=== PATIENT | female | born 1945 | race Caucasian/White ===

== ENCOUNTER → 2020-10-11 | Outpatient (CLI) | payer OTHER ==
[~2020-10-11] VITALS: Ht 162.6 cm; Wt 74.8 kg
[~2020-10-11] MED LIST: FISH OIL 1,0001 EAC9 PO; LEXAPRO20 MG PO; PROTONIX40 M2 PO; SIMVASTATIN40 MG PO; VESICARE10 M1 PO; VITAMIN D325 MC3 PO
--- NOTE | 2020-10-13 14:07 | PATH ---
[facility] [place] [address] [place] [address] PATHOLOGY RPT PROCEDURE Name: AMRITA ANDERSON Room #: REG [facility].#: [id number] Admission: 10/11/20 Date of : 47 Discharge: Report #: [id number] Path Case #: [id number] [facility] Accession Number: [id number] . 01 Material submitted: . PART A: colon - DESCENDING COLON POLYP. Modifiers: descending PART B: sigmoid colon - SIGMOID COLON POLYP X4. Modifiers: X4 PART C: rectum - RECTAL POLYP X2. Modifiers: X2 . 01 Clinical history: . HX OF POLYPS . . 02 Diagnosis: A. Polyp, descending colon polyp, endoscopic biopsy: - Tubular adenoma. - Negative for high grade dysplasia. . B. Polyp x4, sigmoid colon polyp, endoscopic biopsy: - Tubular adenoma identified in few fragments; negative for high grade dysplasia. - Few fragments showing hyperplastic polyp without any dysplasia. . C. Polyp x2, rectal polyp, endoscopic biopsy: - Hyperplastic polyp identified in all fragments. - Negative for dysplasia. . (IUV:mml; 10/13/2020) QLM 10/13/2020 1105 Local . 02 Electronically signed: . Alyssa Mcgowan MD, Pathologist NPI- [id number] . 01 Gross description: . A. The specimen is received in formalin, labeled "Amrita Anderson, descending colon polyp". Received are two segments of pale hernandez tissue measuring 0.3 cm each in maximum dimensions. The specimen is submitted entirely in cassette A1. . B. The specimen is received in formalin, labeled "Amrita Anderson, sigmoid colon polyp". Received are five segments of pale hernandez tissue ranging in size from 0.2-0.5 cm in maximum dimensions. The specimen is submitted entirely in cassette B1. . C. The specimen is received in formalin, labeled "Amrita Anderson, rectal polyp". Received are three segments of pale hernandez tissue ranging in size [address] [address] PATHOLOGY RPT PROCEDURE Name: AMRITA ANDERSON Room #: REG [facility]#: [id number] Admission: 10/11/20 Date of : 47 Discharge: Report #: [id number] Path Case #: [id number] from 0.2-0.3 cm in maximum dimensions. The specimen is submitted entirely in cassette C1. (CAA; 10/12/2020) QAC/QAC 10/12/2020 1225 [facility] . 02 Pathologist provided ICD-10: D12.4, D12.5, K62.1 . 02 CPT . 971086, 540794, 134410 Specimen Comment: A courtesy copy of this report has been sent to [phone] Specimen Comment: [id number] Specimen Comment: Report sent to / DR IFSHMAN Performed at: [address], [place] [id number] MD Denzel Osullivan MD Phone: [phone] Performed at: [address] [id number] MD Alyssa Mcgowan MD Phone: [phone]
--- NOTE | 2020-10-15 14:04 | P ---
[facility] [place] [place] [address] PROCEDURE REPORT Name: AMRITA ANDERSON [id number] Admission: 10/11/20 Attend Phys: Aquilino Sandy Discharge: Date of : 47 Report #: [id number] THIS REPORT FOR: cc: Doni Kaufman MD, Neal A. MD McElhinney, Christian C. MD ~ DATE OF SERVICE: 10/11/2020 PROCEDURE PERFORMED: Colonoscopy with polypectomies. HISTORY OF PRESENT ILLNESS: The patient is a 74-year-old female who presents today for a colonoscopy with a history of polyps on her last colonoscopy; she believes it was approximately 5 years ago. She denies any symptoms. No family history of colon cancer. DESCRIPTION OF PROCEDURE: The risks and benefits of the procedure were explained to the patient, those risks including but not limited to bleeding, perforation and the risk of sedation. She understood these risks and gave informed consent. Sedation was given using propofol per anesthesia. Next, a digital rectal exam was initially performed, which was normal. Next, using a standard Olympus colonoscope, the scope was placed in the patient's anus and advanced under direct vision to the cecum. The overall prep was good. The cecum and ileocecal valve were normal in appearance. The ascending and transverse colon were normal. In the descending colon, a 4 mm sessile polyp was noted. This was removed with cold forceps. In the sigmoid colon, there were a total of 4 polyps, the two larger polyps were 5 mm in size, both removed by snare cautery. The two smaller were 4 mm in size, removed by cold forceps. In the rectum, there were also two 3 mm sessile polyps, both removed with cold forceps. Also noted in the sigmoid colon were scattered diverticula. No evidence of inflammation. On retroflexion, no abnormalities were noted. The scope was then withdrawn and the procedure terminated. The patient tolerated the procedure well. IMPRESSION: 1. Small colonic polyps as described above. 2. Sigmoid diverticulosis. 3. Otherwise, normal colonoscopy. RECOMMENDATIONS: 1. Await biopsy results. 2. Repeat colonoscopy in [address] [address] PROCEDURE REPORT Name: AMRITA ANDERSON Room #: REG [facility] Adelaida#: [id number] Admission: 10/11/20 Attend Phys: Aquilino Sandy Discharge: Date of : 47 Report #: [id number] Thank you for allowing me to participate in her care. <ELECTRONICALLY SIGNED> By: Aquilino Fernandez MD 10/15/20 1404 1032 1853 Aquilino Fernandez MD /nt
== END | disposition home or self-care (01) ==
LOC: GI 07:45
PROVIDERS: ATTEND Specialist
DX: Z12.11 Encounter for screening for malignant neoplasm of colon (principal); Z86.010 Personal history of colon polyps; D12.4 Benign neoplasm of descending colon; D12.5 Benign neoplasm of sigmoid colon; K62.1 Rectal polyp; K57.30 Diverticulosis of large intestine without perforation or abscess without bleeding; E78.00 Pure hypercholesterolemia, unspecified; Z98.890 Other specified postprocedural states; Z79.899 Other long term (current) drug therapy; Z98.41 Cataract extraction status, right eye; Z87.891 Personal history of nicotine dependence; Z98.42 Cataract extraction status, left eye
CPT/HCPCS: 62110; 62900

== ENCOUNTER → 2021-03-30 | Outpatient (CLI) | payer OTHER ==
[~2021-03-30] VITALS: Ht 160 cm; Wt 72.6 kg
[~2021-03-30] MED LIST changes: +MELOXICAM15 MG PO; +NEURONTIN100 MG PO; +ROSUVASTATIN CA10 MG PO; +VITAMIN D310 MC1 PO
[2021-03-30 10:25] VITALS: BP 147/72
--- NOTE | 2021-03-30 10:44 | NUR ---
Pain Clinic Assessment: 1. History of Osteoarthritis: Not Applicable History of Rheumatoid Arthritis: Not Applicable 2. Height: 5 ft. 3 in. 160.0 cm. Weight: 160.0 lb. oz. 72.576 kg. Patient's BMI: 28.4 3. Vital Signs: BP: 147/72 Pulse: 65 Resp: 16 Temp: 02 Sat: 96 ECG Mon: 4. Pain Intensity: 1 5. Fall Risk: Dizziness: N Needs help standing or walking: N Fallen in the last 3 months: N Fall risk comments: 6. Patient on Blood Thinner: None 7. History of Hypertension: N 8. Opioid Therapy greater than 6 weeks: Opiate Contract Signed: 9. Risk Assessment Tool Provided: 2 LOW RISK 10. Functional Assessment Tool: 11. Recreational Drug Use: Never Drug Type: Tobacco Use: Former Smoker Tobacco Type: Amount or Packs/day: How Many Years: Alcohol Use: Yes Frequency: Daily Quant: 2
== END ==
LOC: PAIN 06:58
PROVIDERS: ATTEND Anesthesiology Pain Medicine
DX: M54.6 Pain in thoracic spine (principal); M62.81 Muscle weakness (generalized); E78.5 Hyperlipidemia, unspecified; M48.04 Spinal stenosis, thoracic region; Z79.899 Other long term (current) drug therapy; Z88.8 Allergy status to other drugs, medicaments and biological substances; Z87.891 Personal history of nicotine dependence

== ENCOUNTER → 2021-07-10 | Outpatient (CLI) | payer OTHER | LOC: ULTRA 09:28 | PROVIDERS: ATTEND Family Medicine | DX: M79.604 Pain in right leg (principal); M79.605 Pain in left leg ==